=== PATIENT | female | born 1965 | race African-American/Black ===

== ENCOUNTER 2018-12-30 12:08 | Inpatient (IN) | payer SELFPAY ==
[~2018-12-30] VITALS: Ht 165.1 cm; Wt 77.1 kg
[2018-12-30] MEDS ORDERED: hydrALAZINE 20 MG/ML VIAL. IVP ONE ×2 (12:15→13:30)
--- NOTE | 2018-12-30 12:19 | PHYS DOC ---
Past Medical History Attending Signature I have participated in the care of this patient and I have reviewed and agree with all pertinent clinical information above including history, exam, and recommendations. (OLAYINKA PINO MD) Adult General HPI HPI Patient is a 53 year old female that presents to the ER for high blood pressure. Her blood pressure reading at an ancillary outpatient clinic was was reading high so she came by ambulance to the ER. Her blood pressure in the ambulance was 255/143. Denies any pain or symptoms of this time. Rates the last time she had blood pressure medicine was in 2018 when she was on Lisinopril. She stopped taking the medicine due to financial reasons. (HEAVEN SCOTT APRN) Review of Systems Review of Systems Constitutional: Denies fever or chills [] Eyes: Denies change in visual acuity, redness, or eye pain [] HENT: Denies nasal congestion or sore throat [] Respiratory: Denies cough or shortness of breath [] Cardiovascular: No additional information not addressed in HPI [] GI: Denies abdominal pain, nausea, vomiting, bloody stools or diarrhea [] : Denies dysuria or hematuria [] Musculoskeletal: Denies back pain or joint pain [] Integument: Denies rash or skin lesions [] Neurologic: Denies headache, focal weakness or sensory changes [] Endocrine: Denies polyuria or polydipsia [] Complete systems were reviewed and found to be within normal limits, except as documented in this note. (HEAVEN SCOTT APRN) Current Medications Current Medications Current Medications Medications (Trade) Dose Ordered Sig/Amor Start Time Stop Time Status Last Admin Dose Admin Hydralazine HCl (Apresoline Inj) 10 mg 1X ONCE 12/30/18 13:30 12/30/18 13:31 DC 12/30/18 14:23 10 MG Info (CONTRAST GIVEN -- Rx MONITORING) 1 each PRN DAILY PRN 12/30/18 14:00 01/01/19 13:59 Iohexol (Omnipaque 350 Mg/ml) 60 ml 1X ONCE 12/30/18 14:00 12/30/18 14:01 DC 12/30/18 14:12 60 ML (OLAIYNKA PINO MD) Allergies Allergies Allergies Coded Allergies Type Severity Reaction Last Updated Verified No Known Drug Allergies 12/30/18 No (OLAYINKA PINO MD) Physical Exam Physical Exam Constitutional: Well developed, well nourished, no acute distress, non-toxic appearance. [] HENT: Normocephalic, atraumatic, bilateral external ears normal, oropharynx moist, no oral exudates, nose normal. [] Eyes: PERRLA, EOMI, conjunctiva normal, no discharge. [] Neck: Normal range of motion, no tenderness, supple, no stridor. [] Cardiovascular:Heart rate regular rhythm, no murmur [] Lungs & Thorax: Bilateral breath sounds clear to auscultation [] Abdomen: Bowel sounds normal, soft, no tenderness, no masses, no pulsatile masses. [] Skin: Warm, dry, no erythema, no rash. [] Back: No tenderness, no CVA tenderness. [] Extremities: No tenderness, no cyanosis, no clubbing, ROM intact, no edema. [] Neurologic: Alert and oriented X 3, normal motor function, normal sensory function, no focal deficits noted. [] Psychologic: Affect normal, judgement normal, mood normal. [] (HEAVEN SCOTT APRN) Current Patient Data Vital Signs Vital Signs Date Time Temp Pulse Resp B/P (MAP) Pulse Ox O2 Delivery O2 Flow Rate FiO2 12/30/18 14:23 73 207/114 12/30/18 12:10 98.4 20 95 Room Air 98.4 (OLAYINKA PINO MD) Lab Values Laboratory Tests Test 12/30/18 12:39 White Blood Count 3.4 x10^3/uL (4.0-11.0) L Red Blood Count 3.90 x10^6/uL (3.50-5.40) Hemoglobin 12.7 g/dL (12.0-15.5) Hematocrit 36.8 % (36.0-47.0) Mean Corpuscular Volume 94 fL (79-100) Mean Corpuscular Hemoglobin 32 pg (25-35) Mean Corpuscular Hemoglobin Concent 34 g/dL (31-37) Red Cell Distribution Width 12.0 % (11.5-14.5) Platelet Count 205 x10^3/uL (140-400) Neutrophils (%) (Auto) 45 % (31-73) Lymphocytes (%) (Auto) 44 % (24-48) Monocytes (%) (Auto) 10 % (0-9) H Eosinophils (%) (Auto) 1 % (0-3) Basophils (%) (Auto) 0 % (0-3) Neutrophils # (Auto) 1.5 x10^3/uL (1.8-7.7) L Lymphocytes # (Auto) 1.5 x10^3/uL (1.0-4.8) Monocytes # (Auto) 0.3 x10^3/uL (0.0-1.1) Eosinophils # (Auto) 0.0 x10^3/uL (0.0-0.7) Basophils # (Auto) 0.0 x10^3/uL (0.0-0.2) Sodium Level 145 mmol/L (136-145) Potassium Level 4.1 mmol/L (3.5-5.1) Chloride Level 106 mmol/L (98-107) Carbon Dioxide Level 28 mmol/L (21-32) Anion Gap 11 (6-14) Blood Urea Nitrogen 15 mg/dL (7-20) Creatinine 1.1 mg/dL (0.6-1.0) H Estimated GFR (Cockcroft-Gault) 51.6 BUN/Creatinine Ratio 14 (6-20) Glucose Level 89 mg/dL (70-99) Calcium Level 9.5 mg/dL (8.5-10.1) Total Bilirubin 0.6 mg/dL (0.2-1.0) Aspartate Amino Transferase (AST) 15 U/L (15-37) Alanine Aminotransferase (ALT) 11 U/L (14-59) L Alkaline Phosphatase 86 U/L (46-116) Total Protein 8.6 g/dL (6.4-8.2) H Albumin 4.1 g/dL (3.4-5.0) Albumin/Globulin Ratio 0.9 (1.0-1.7) L Laboratory Tests 12/30/18 12:39 Laboratory Tests 12/30/18 12:39 (OLAYINKA PINO MD) Lab Values Laboratory Tests Test 12/30/18 12:39 White Blood Count 3.4 x10^3/uL (4.0-11.0) L Red Blood Count 3.90 x10^6/uL (3.50-5.40) Hemoglobin 12.7 g/dL (12.0-15.5) Hematocrit 36.8 % (36.0-47.0) Mean Corpuscular Volume 94 fL (79-100) Mean Corpuscular Hemoglobin 32 pg (25-35) Mean Corpuscular Hemoglobin Concent 34 g/dL (31-37) Red Cell Distribution Width 12.0 % (11.5-14.5) Platelet Count 205 x10^3/uL (140-400) Neutrophils (%) (Auto) 45 % (31-73) Lymphocytes (%) (Auto) 44 % (24-48) Monocytes (%) (Auto) 10 % (0-9) H Eosinophils (%) (Auto) 1 % (0-3) Basophils (%) (Auto) 0 % (0-3) Neutrophils # (Auto) 1.5 x10^3/uL (1.8-7.7) L Lymphocytes # (Auto) 1.5 x10^3/uL (1.0-4.8) Monocytes # (Auto) 0.3 x10^3/uL (0.0-1.1) Eosinophils # (Auto) 0.0 x10^3/uL (0.0-0.7) Basophils # (Auto) 0.0 x10^3/uL (0.0-0.2) Sodium Level 145 mmol/L (136-145) Potassium Level 4.1 mmol/L (3.5-5.1) Chloride Level 106 mmol/L (98-107) Carbon Dioxide Level 28 mmol/L (21-32) Anion Gap 11 (6-14) Blood Urea Nitrogen 15 mg/dL (7-20) Creatinine 1.1 mg/dL (0.6-1.0) H Estimated GFR (Cockcroft-Gault) 51.6 BUN/Creatinine Ratio 14 (6-20) Glucose Level 89 mg/dL (70-99) Calcium Level 9.5 mg/dL (8.5-10.1) Total Bilirubin 0.6 mg/dL (0.2-1.0) Aspartate Amino Transferase (AST) 15 U/L (15-37) Alanine Aminotransferase (ALT) 11 U/L (14-59) L Alkaline Phosphatase 86 U/L (46-116) Total Protein 8.6 g/dL (6.4-8.2) H Albumin 4.1 g/dL (3.4-5.0) Albumin/Globulin Ratio 0.9 (1.0-1.7) L Laboratory Tests 12/30/18 12:39 Laboratory Tests 12/30/18 12:39 (HEAVEN SCOTT APRN) EKG EKG EKG interpreted by Dr. Pino Sinus with rate of 55, No STEMI.[] (HEAVEN SCOTT APRN) Radiology/Procedures Radiology/Procedures [][facility] [address] [place] [address] IMAGING REPORT Signed PATIENT: SUSHIL ACOSTA ACCOUNT: [id number] : 1965 LOCATION: ER AGE: 53 SEX: F EXAM STATUS: REG ER ORD. PHYSICIAN: HEAVEN SCOTT APRN REASON: headache PROCEDURE: CT HEAD WO CONTRAST PQRS Compliance Statement: One or more of the following individualized dose reduction techniques were utilized for this examination: 1. Automated exposure control 2. Adjustment of the mA and/or kV according to patient size 3. Use of iterative reconstruction technique CT HEAD WO CONTRAST, CT ANGIOGRAPHY HEAD AND NECK 12/30/2018 2:01 PM INDICATION: Blurry vision, hypertension with history of aneurysm COMPARISON: None available TECHNIQUE: Multiple axial CT images of the head were obtained from skull base to the vertex without intravenous contrast. Multiple axial CT images of the head and neck were obtained after the intravenous administration of nonionic contrast. Coronal and sagittal reformats are provided. Maximum intensity projection images are provided. Stenosis calculations for CT, MR, and conventional angiography are based upon measurements of the distal ICA diameter in accordance with the NASCET methodology. Stenosis calculations for carotid ultrasound studies are derived from validated velocity criteria which are known to correlate with the NASCET methodology. FINDINGS: Ventricles, sulci and basal cisterns are normal in appearance. Focal hypoattenuation is identified in the right external capsule which may represent remote lacunar infarct measuring 7 mm. Boone-white matter differentiation is preserved. There is no mass, mass effect or midline shift. Posterior fossa is normal in appearance. Sella and suprasellar cistern appear normal. Orbits are normal in appearance. Scalp and calvaria appear intact. Paranasal sinuses are well aerated. Mastoid air cells are well aerated. Visualized portions of lungs are clear. Thyroid gland is normal in appearance. Neck soft tissues are normal in appearance. No pathologically enlarged cervical lymphadenopathy. Pharynx and larynx appear intact. Left retropectoral lymph node measures 9.5 mm. Amorphous soft tissue is noted within the anterior superior mediastinum and may represent residual thymic tissue. Mild cervical spondylosis is noted at C5-C6 and C6-C7. Vascular findings: There is a normal three-vessel aortic arch. Origins of the brachiocephalic vessels are widely patent. Right common carotid artery is normal in course and caliber. No significant atherosclerotic changes are identified at the right carotid bifurcation. No significant stenosis of the right cervical internal carotid artery. External carotid artery is widely patent. Left common carotid artery is normal in course and caliber. No significant atherosclerotic changes are identified at the left carotid bifurcation. No significant stenosis of the left cervical internal carotid artery. External carotid artery is widely patent. Vertebral arteries are normal in course and caliber. Intracranial segments of internal carotid arteries are normal in course and caliber. There is mild calcified atheromatous plaque involving the cavernous segments without significant stenosis. Origins of the ophthalmic segments of the internal carotid artery appears widely patent. Middle cerebral arteries are normal in course and caliber with patent sylvian branches. Anterior cerebral arteries are normal in course and caliber. Anterior communicating artery is visualized. Basilar artery is normal in course and caliber. Superior cerebellar arteries are widely patent. Posterior cerebral arteries are normal in course and caliber. There is no aneurysm, vascular malformation or high-grade stenosis/large vessel occlusion involving [place]. Superior sagittal sinus is patent. IMPRESSION: 1. There is no evidence for acute intracranial hemorrhage. Focal hypoattenuation is identified in the right external capsule which may represent remote lacunar infarct measuring 7 mm. If there is persistent clinical concern, further evaluation with MRI is recommended. 2. There is no evidence for hemodynamically significant carotid stenosis. 3. There is no aneurysm, vascular malformation or high-grade stenosis/large vessel occlusion involving the [place]. Recommend correlation with any prior examinations if available with regards to "history of aneurysm". Electronically signed by: Darlene Kiran MD (12/30/2018 2:40 PM) [id number] DICTATED and SIGNED BY: DARLENE KIRAN MD DATE: 12/30/18 6891 (HEAVEN SCOTT APRN) Course & Med Decision Making Course & Med Decision Making Pertinent Labs and Imaging studies reviewed. (See chart for details) Will get labs, ekg, and give hydralazine. 1328: Patient is now complaining of left eye blurry vision, and headache. BP is now 205/107. Will give 10 mg of hydralazine and order CTA Head/neck. CT head shows 7 mm lacunar infarct likely not acute. Will contact hospitalist for admission. BP is 178/117. Discussed with Dr. Lui who agrees to admission. Dr. Lui request consult to neurology and 40 mg of IV Lasix for BP (HEAVEN SCOTT APRN) Dragon Disclaimer Dragon Disclaimer This electronic medical record was generated, in whole or in part, using a voice recognition dictation system. (HEAVEN SCOTT APRN) Departure Departure Impression: Primary Impression: Hypertensive urgency Disposition: ADMITTED INPATIENT Admitting Physician: PIOTR (HEAVEN SCOTT APRN) Condition: STABLE NIHSS Stroke Scale NIH Stroke Scale: NIH Stroke Scale Response (Comments) Value Level of Consciousness: 0 Alert/Responsive 0 LOC Questions: 0 Answers both correctly 0 LOC Commands: 0 Performs both tasks 0 Best Gaze: 0 Normal 0 Visual: 0 No visual loss 0 Facial Palsy: 0 Normal, symmetrical 0 Motor - Left Arm 0 No drift 0 Motor - Right Arm 0 No drift 0 Motor - Left Leg 0 No drift 0 Motor: Right Leg 0 No drift 0 Limb Ataxia: 0 Absent 0 Sensory: 0 No loss 0 Best Language: 0 Normal 0 Dysathria: 0 Normal 0 Extinction and Inattention: 0 Normal 0 Total 0 HEAVEN SCOTT APRN Dec 30, 2018 12:19 OLAYINKA PINO MD Dec 31, 2018 09:33
[2018-12-30 12:51] LABS: BASO % 0 % (0-3); EOS % 1 % (0-3); HEMATOCRIT 36.8 % (36.0-47.0); HEMOGLOBIN 12.7 g/dL (12.0-15.5); LYMPH # 1.5 x10^3/uL (1.0-4.8); LYMPH % 44 % (24-48); MEAN CORPUSCULAR HEMOGLOBIN 32 pg (25-35); MEAN CORPUSCULAR HGB CONC 34 g/dL (31-37); MEAN CORPUSCULAR VOLUME 94 fL (79-100); MONO # 0.3 x10^3/uL (0.0-1.1); MONO % 10 % (0-9); NEUT # 1.5 x10^3/uL (1.8-7.7); NEUT % 45 % (31-73); PLATELET COUNT 205 x10^3/uL (140-400); WHITE BLOOD COUNT 3.4 x10^3/uL (4.0-11.0)
[2018-12-30 12:58] LABS: CALCIUM 9.5 mg/dL (8.5-10.1); CREATININE 1.1 mg/dL (0.6-1.0); GFR 51.6; POTASSIUM 4.1 mmol/L (3.5-5.1)
[2018-12-30 13:04] LABS: ALBUMIN 4.1 g/dL (3.4-5.0); ALBUMIN/GLOBULIN RATIO 0.9 (1.0-1.7); TOTAL BILIRUBIN 0.6 mg/dL (0.2-1.0); TOTAL PROTEIN 8.6 g/dL (6.4-8.2)
--- NOTE | 2018-12-30 13:23 | EKG ---
[facility] [address] [place] [address] Test Date: 2018-12-30 Test Time: 12:25:39 Pat Name: SUSHIL ACOSTA Department: Room: Gender: F Transferrer: : 1965 Requested By: HEAVEN SCOTT Order Number: [id number] Reading MD: Robert Tsai MD Measurements Intervals Roby Rate: 55 P: 38 WA: 140 QRS: -8 QRSD: 98 T: 4 QT: 440 QTc: 423 Interpretive Statements SINUS RHYTHM NON-SPECIFIC ST/T CHANGES Electronically Signed On 01-08-2019 12:05:38 CDT by Robert Tsai MD
[2018-12-30] MEDS ORDERED: CONTRAST GIVEN. MC PRN (14:00)
[2018-12-30] MEDS ORDERED: IOHEXOL 350 MG/ML 100 ML VIAL. IV ONE (14:00)
--- NOTE | 2018-12-30 14:43 | RAD ---
PQRS Compliance Statement: One or more of the following individualized dose reduction techniques were utilized for this examination: 1. Automated exposure control 2. Adjustment of the mA and/or kV according to patient size 3. Use of iterative reconstruction technique CT HEAD WO CONTRAST, CT ANGIOGRAPHY HEAD AND NECK 12/30/2018 2:01 PM INDICATION: Blurry vision, hypertension with history of aneurysm COMPARISON: None available TECHNIQUE: Multiple axial CT images of the head were obtained from skull base to the vertex without intravenous contrast. Multiple axial CT images of the head and neck were obtained after the intravenous administration of nonionic contrast. Coronal and sagittal reformats are provided. Maximum intensity projection images are provided. Stenosis calculations for CT, MR, and conventional angiography are based upon measurements of the distal ICA diameter in accordance with the NASCET methodology. Stenosis calculations for carotid ultrasound studies are derived from validated velocity criteria which are known to correlate with the NASCET methodology. FINDINGS: Ventricles, sulci and basal cisterns are normal in appearance. Focal hypoattenuation is identified in the right external capsule which may represent remote lacunar infarct measuring 7 mm. Boone-white matter differentiation is preserved. There is no mass, mass effect or midline shift. Posterior fossa is normal in appearance. Sella and suprasellar cistern appear normal. Orbits are normal in appearance. Scalp and calvaria appear intact. Paranasal sinuses are well aerated. Mastoid air cells are well aerated. Visualized portions of lungs are clear. Thyroid gland is normal in appearance. Neck soft tissues are normal in appearance. No pathologically enlarged cervical lymphadenopathy. Pharynx and larynx appear intact. Left retropectoral lymph node measures 9.5 mm. Amorphous soft tissue is noted within the anterior superior mediastinum and may represent residual thymic tissue. Mild cervical spondylosis is noted at C5-C6 and C6-C7. Vascular findings: There is a normal three-vessel aortic arch. Origins of the brachiocephalic vessels are widely patent. Right common carotid artery is normal in course and caliber. No significant atherosclerotic changes are identified at the right carotid bifurcation. No significant stenosis of the right cervical internal carotid artery. External carotid artery is widely patent. Left common carotid artery is normal in course and caliber. No significant atherosclerotic changes are identified at the left carotid bifurcation. No significant stenosis of the left cervical internal carotid artery. External carotid artery is widely patent. Vertebral arteries are normal in course and caliber. Intracranial segments of internal carotid arteries are normal in course and caliber. There is mild calcified atheromatous plaque involving the cavernous segments without significant stenosis. Origins of the ophthalmic segments of the internal carotid artery appears widely patent. Middle cerebral arteries are normal in course and caliber with patent sylvian branches. Anterior cerebral arteries are normal in course and caliber. Anterior communicating artery is visualized. Basilar artery is normal in course and caliber. Superior cerebellar arteries are widely patent. Posterior cerebral arteries are normal in course and caliber. There is no aneurysm, vascular malformation or high-grade stenosis/large vessel occlusion involving [place]. Superior sagittal sinus is patent. IMPRESSION: 1. There is no evidence for acute intracranial hemorrhage. Focal hypoattenuation is identified in the right external capsule which may represent remote lacunar infarct measuring 7 mm. If there is persistent clinical concern, further evaluation with MRI is recommended. 2. There is no evidence for hemodynamically significant carotid stenosis. 3. There is no aneurysm, vascular malformation or high-grade stenosis/large vessel occlusion involving the [place]. Recommend correlation with any prior examinations if available with regards to "history of aneurysm". Electronically signed by: Jhoana Garcia MD (12/30/2018 2:40 PM) [id number]
[2018-12-30] MEDS ORDERED: ONDANSETRON PF 4 MG/2 ML VIAL. IV PRN (16:00)
[2018-12-30] MEDS ORDERED: fentaNYL PF VIAL 100 MCG/2 ML VIAL IV PRN (16:00)
[2018-12-30] MEDS ORDERED: FUROSEMIDE 40 MG/4 ML VIAL. IVP ONE (16:00)
[2018-12-30] MEDS ORDERED: LISI-130 PO (17:18)
--- NOTE | 2018-12-30 18:54 | HP ---
ADMIT DATE: 12/30/2018 CHIEF COMPLAINT: High blood pressure. HISTORY OF PRESENT ILLNESS: The patient is a pleasant middle-aged female who I think could not afford her meds. She is supposed to be on lisinopril and has not been taking it now. Her pressure is 255/143. I discussed the case with ER physician. We also had a CAT scan done, which is showing a 7-mm stroke, then she developed some visual changes in the ER. We are starting some Lasix and we will plan to consult Neurology. PAST MEDICAL HISTORY: Noncompliance and hypertension. ALLERGIES: None. FAMILY HISTORY: Hypertension. SOCIAL HISTORY: She does not drink, smoke or take drugs. She is applying for disability. MEDICATIONS: Reviewed. Please refer to the MRAD. REVIEW OF SYSTEMS: GENERAL: No history of weight change, weakness or fevers. SKIN: No bruising, hair changes or rashes. EYES: No blurred, double or loss of vision. NOSE AND THROAT: No history of nosebleeds, hoarseness or sore throat. HEART: No history of palpitations, chest pain or shortness of breath on exertion. LUNGS: Denies cough, hemoptysis, wheezing or shortness of breath. GASTROINTESTINAL: Denies changes in appetite, nausea, vomiting, diarrhea or constipation. GENITOURINARY: No history of frequency, urgency, hesitancy or nocturia. NEUROLOGIC: Denies history of numbness, tingling, tremor or weakness. She complains of visual changes, although it is improved. PSYCHIATRIC: No history of panic, anxiety or depression. ENDOCRINE: No history of heat or cold intolerance, polyuria or polydipsia. EXTREMITIES: Denies muscle weakness, joint pain, pain on walking or stiffness. PHYSICAL EXAMINATION: VITAL SIGNS: Pressure was 255/148. We got it down to 170/90. GENERAL: No apparent distress. Alert and oriented. HEENT: Head is normocephalic, atraumatic, pupils were equally round and reactive to light and accommodation. NECK: Supple, no JVD, no thyromegaly was noted. LUNGS: Clear to auscultation in all lung alonso without rhonchi or wheezing. HEART: RRR, S1, S2 present. Peripheral pulses intact, no obvious murmurs were noted. ABDOMEN: Soft, nontender. Positive bowel sounds no organomegaly, normal bowel sounds. EXTREMITIES: Without any cyanosis, clubbing, or edema. Pedal pulses intact, Homans sign is negative. NEUROLOGIC: Normal speech, normal tone. A & O x3, moves all extremities, no obvious focal deficits. PSYCHIATRIC: Normal affect, normal mood. Stable. SKIN: No ulcerations or rashes, good skin turgor, no jaundice. VASCULAR: Good capillary refill, neurovascular bundle appears to be intact. LABORATORY DATA: White count is 3.4. Electrolytes are normal. ASSESSMENT AND PLAN: Hypertensive urgency with incidental finding of a stroke and visual changes. The patient is being admitted. We will get her pressure down with p.r.n. hydralazine. I started her on lisinopril 10 a day, Lasix 40 a day, and potassium chloride 20 a day. Consult Neurology, PT/OT, home meds, and DVT prophylaxis. ANTONIO MACDONALD DO DR: DEJUAN/markos JOB#: [id number] / [id number]
[2018-12-30] MEDS: HYDROcodone/APAP 5/325MG 1 TAB TABLET PO PRN (18:56)
[2018-12-30 19:10] VITALS: BP 130/71
[2018-12-30 23:20] VITALS: BP 157/88
[2018-12-31 02:51] VITALS: BP 184/117
[2018-12-31] MEDS: HYDROcodone/APAP 5/325MG 1 TAB TABLET PO PRN ×2 (02:52→21:20)
[2018-12-31 07:00] VITALS: BP 159/119
[2018-12-31] MEDS: amLODIPine BESYLATE 10 MG TABLET PO SCH (08:49)
[2018-12-31] MEDS: POTASSIUM CHLORIDE 20 MEQ TABLET.ER. PO SCH (08:49)
[2018-12-31] MEDS: FUROSEMIDE 40 MG TABLET. PO SCH (08:49)
[2018-12-31] MEDS ORDERED: LISINOPRIL 10 MG TABLET PO SCH (09:00)
--- NOTE | 2018-12-31 09:12 | PDOC ---
PROGRESS NOTES History of Present Illness History of Present Illness ASSESSMENT AND PLAN: Hypertensive urgency acute, remains uncontrolled stroke ,Focal hypoattenuation is identified in the right external capsule which may represent remote lacunar infarct measuring 7 mm. If there is persistent clinical concern, further evaluation with MRI is recommended. visual changes. hx noncompliance admitted. iv p.r.n. hydralazine. 10mg q 4 hrs prn bp support lisinopril 10 bid inc Lasix 40 a day, potassium chloride 20meq a day. Consult Neurology, PT/OT, home meds, DVT prophylaxis. 39 min pt exam, chart review, > 50% of time spent with exam, chart review, pt care coordination Vitals Vitals Vital Signs Date Time Temp Pulse Resp B/P (MAP) Pulse Ox O2 Delivery O2 Flow Rate FiO2 12/31/18 08:49 62 159/119 12/31/18 07:00 98.4 18 94 Room Air 98.4 Physical Exam Physical Exam GENERAL: No apparent distress. Alert and oriented. HEENT: Head is normocephalic, atraumatic, pupils were equally round and reactive to light and accommodation. NECK: Supple, no JVD, no thyromegaly was noted. LUNGS: Clear to auscultation in all lung alonso without rhonchi or wheezing. HEART: RRR, S1, S2 present. Peripheral pulses intact, no obvious murmurs were noted. ABDOMEN: Soft, nontender. Positive bowel sounds no organomegaly, normal bowel sounds. EXTREMITIES: Without any cyanosis, clubbing, or edema. Pedal pulses intact, Homans sign is negative. NEUROLOGIC: Normal speech, normal tone. A & O x3, moves all extremities, no obvious focal deficits. PSYCHIATRIC: Normal affect, normal mood. Stable. SKIN: No ulcerations or rashes, good skin turgor, no jaundice. VASCULAR: Good capillary refill, neurovascular bundle appears to be intact. General: Alert, Oriented X3, Cooperative, No acute distress Heart: Regular rate Lungs: Clear Extremities: No cyanosis Labs LABS CT HEAD WO CONTRAST, CT ANGIOGRAPHY HEAD AND NECK 12/30/2018 2:01 PM INDICATION: Blurry vision, hypertension with history of aneurysm COMPARISON: None available TECHNIQUE: Multiple axial CT images of the head were obtained from skull base to the vertex without intravenous contrast. Multiple axial CT images of the head and neck were obtained after the intravenous administration of nonionic contrast. Coronal and sagittal reformats are provided. Maximum intensity projection images are provided. Stenosis calculations for CT, MR, and conventional angiography are based upon measurements of the distal ICA diameter in accordance with the NASCET methodology. Stenosis calculations for carotid ultrasound studies are derived from validated velocity criteria which are known to correlate with the NASCET methodology. FINDINGS: Ventricles, sulci and basal cisterns are normal in appearance. Focal hypoattenuation is identified in the right external capsule which may represent remote lacunar infarct measuring 7 mm. [place]-white matter differentiation is preserved. There is no mass, mass effect or midline shift. Posterior fossa is normal in appearance. Sella and suprasellar cistern appear normal. Orbits are normal in appearance. Scalp and calvaria appear intact. Paranasal sinuses are well aerated. Mastoid air cells are well aerated. Visualized portions of lungs are clear. Thyroid gland is normal in appearance. Neck soft tissues are normal in appearance. No pathologically enlarged cervical lymphadenopathy. Pharynx and larynx appear intact. Left retropectoral lymph node measures 9.5 mm. Amorphous soft tissue is noted within the anterior superior mediastinum and may represent residual thymic tissue. Mild cervical spondylosis is noted at C5-C6 and C6-C7. Vascular findings: There is a normal three-vessel aortic arch. Origins of the brachiocephalic vessels are widely patent. Right common carotid artery is normal in course and caliber. No significant atherosclerotic changes are identified at the right carotid bifurcation. No significant stenosis of the right cervical internal carotid artery. External carotid artery is widely patent. Left common carotid artery is normal in course and caliber. No significant atherosclerotic changes are identified at the left carotid bifurcation. No significant stenosis of the left cervical internal carotid artery. External carotid artery is widely patent. Vertebral arteries are normal in course and caliber. Intracranial segments of internal carotid arteries are normal in course and caliber. There is mild calcified atheromatous plaque involving the cavernous segments without significant stenosis. Origins of the ophthalmic segments of the internal carotid artery appears widely patent. Middle cerebral arteries are normal in course and caliber with patent sylvian branches. Anterior cerebral arteries are normal in course and caliber. Anterior communicating artery is visualized. Basilar artery is normal in course and caliber. Superior cerebellar arteries are widely patent. Posterior cerebral arteries are normal in course and caliber. There is no aneurysm, vascular malformation or high-grade stenosis/large vessel occlusion involving [place]. Superior sagittal sinus is patent. IMPRESSION: 1. There is no evidence for acute intracranial hemorrhage. Focal hypoattenuation is identified in the right external capsule which may represent remote lacunar infarct measuring 7 mm. If there is persistent clinical concern, further evaluation with MRI is recommended. 2. There is no evidence for hemodynamically significant carotid stenosis. 3. There is no aneurysm, vascular malformation or high-grade stenosis/large vessel occlusion involving the [place]. Recommend correlation with any prior examinations if available with regards to "history of aneurysm". Electronically signed by: Jhoana Garcia MD (12/30/2018 2:40 PM) [id number] Laboratory Tests Test 12/30/18 12:39 White Blood Count 3.4 x10^3/uL (4.0-11.0) Red Blood Count 3.90 x10^6/uL (3.50-5.40) Hemoglobin 12.7 g/dL (12.0-15.5) Hematocrit 36.8 % (36.0-47.0) Mean Corpuscular Volume 94 fL (79-100) Mean Corpuscular Hemoglobin 32 pg (25-35) Mean Corpuscular Hemoglobin Concent 34 g/dL (31-37) Red Cell Distribution Width 12.0 % (11.5-14.5) Platelet Count 205 x10^3/uL (140-400) Neutrophils (%) (Auto) 45 % (31-73) Lymphocytes (%) (Auto) 44 % (24-48) Monocytes (%) (Auto) 10 % (0-9) Eosinophils (%) (Auto) 1 % (0-3) Basophils (%) (Auto) 0 % (0-3) Neutrophils # (Auto) 1.5 x10^3/uL (1.8-7.7) Lymphocytes # (Auto) 1.5 x10^3/uL (1.0-4.8) Monocytes # (Auto) 0.3 x10^3/uL (0.0-1.1) Eosinophils # (Auto) 0.0 x10^3/uL (0.0-0.7) Basophils # (Auto) 0.0 x10^3/uL (0.0-0.2) Sodium Level 145 mmol/L (136-145) Potassium Level 4.1 mmol/L (3.5-5.1) Chloride Level 106 mmol/L (98-107) Carbon Dioxide Level 28 mmol/L (21-32) Anion Gap 11 (6-14) Blood Urea Nitrogen 15 mg/dL (7-20) Creatinine 1.1 mg/dL (0.6-1.0) Estimated GFR (Cockcroft-Gault) 51.6 BUN/Creatinine Ratio 14 (6-20) Glucose Level 89 mg/dL (70-99) Calcium Level 9.5 mg/dL (8.5-10.1) Total Bilirubin 0.6 mg/dL (0.2-1.0) Aspartate Amino Transf (AST/SGOT) 15 U/L (15-37) Alanine Aminotransferase (ALT/SGPT) 11 U/L (14-59) Alkaline Phosphatase 86 U/L (46-116) Total Protein 8.6 g/dL (6.4-8.2) Albumin 4.1 g/dL (3.4-5.0) Albumin/Globulin Ratio 0.9 (1.0-1.7) Assessment and Plan Assessmemt and Plan Problems Medical Problems: (1) Hypertensive urgency Status: Acute Comment Review of Relevant I have reviewed the following items noris (where applicable) has been applied. Labs Laboratory Tests Test 12/30/18 12:39 White Blood Count 3.4 x10^3/uL (4.0-11.0) Red Blood Count 3.90 x10^6/uL (3.50-5.40) Hemoglobin 12.7 g/dL (12.0-15.5) Hematocrit 36.8 % (36.0-47.0) Mean Corpuscular Volume 94 fL (79-100) Mean Corpuscular Hemoglobin 32 pg (25-35) Mean Corpuscular Hemoglobin Concent 34 g/dL (31-37) Red Cell Distribution Width 12.0 % (11.5-14.5) Platelet Count 205 x10^3/uL (140-400) Neutrophils (%) (Auto) 45 % (31-73) Lymphocytes (%) (Auto) 44 % (24-48) Monocytes (%) (Auto) 10 % (0-9) Eosinophils (%) (Auto) 1 % (0-3) Basophils (%) (Auto) 0 % (0-3) Neutrophils # (Auto) 1.5 x10^3/uL (1.8-7.7) Lymphocytes # (Auto) 1.5 x10^3/uL (1.0-4.8) Monocytes # (Auto) 0.3 x10^3/uL (0.0-1.1) Eosinophils # (Auto) 0.0 x10^3/uL (0.0-0.7) Basophils # (Auto) 0.0 x10^3/uL (0.0-0.2) Sodium Level 145 mmol/L (136-145) Potassium Level 4.1 mmol/L (3.5-5.1) Chloride Level 106 mmol/L (98-107) Carbon Dioxide Level 28 mmol/L (21-32) Anion Gap 11 (6-14) Blood Urea Nitrogen 15 mg/dL (7-20) Creatinine 1.1 mg/dL (0.6-1.0) Estimated GFR (Cockcroft-Gault) 51.6 BUN/Creatinine Ratio 14 (6-20) Glucose Level 89 mg/dL (70-99) Calcium Level 9.5 mg/dL (8.5-10.1) Total Bilirubin 0.6 mg/dL (0.2-1.0) Aspartate Amino Transf (AST/SGOT) 15 U/L (15-37) Alanine Aminotransferase (ALT/SGPT) 11 U/L (14-59) Alkaline Phosphatase 86 U/L (46-116) Total Protein 8.6 g/dL (6.4-8.2) Albumin 4.1 g/dL (3.4-5.0) Albumin/Globulin Ratio 0.9 (1.0-1.7) Laboratory Tests Test 12/30/18 12:39 White Blood Count 3.4 x10^3/uL (4.0-11.0) Red Blood Count 3.90 x10^6/uL (3.50-5.40) Hemoglobin 12.7 g/dL (12.0-15.5) Hematocrit 36.8 % (36.0-47.0) Mean Corpuscular Volume 94 fL (79-100) Mean Corpuscular Hemoglobin 32 pg (25-35) Mean Corpuscular Hemoglobin Concent 34 g/dL (31-37) Red Cell Distribution Width 12.0 % (11.5-14.5) Platelet Count 205 x10^3/uL (140-400) Neutrophils (%) (Auto) 45 % (31-73) Lymphocytes (%) (Auto) 44 % (24-48) Monocytes (%) (Auto) 10 % (0-9) Eosinophils (%) (Auto) 1 % (0-3) Basophils (%) (Auto) 0 % (0-3) Neutrophils # (Auto) 1.5 x10^3/uL (1.8-7.7) Lymphocytes # (Auto) 1.5 x10^3/uL (1.0-4.8) Monocytes # (Auto) 0.3 x10^3/uL (0.0-1.1) Eosinophils # (Auto) 0.0 x10^3/uL (0.0-0.7) Basophils # (Auto) 0.0 x10^3/uL (0.0-0.2) Sodium Level 145 mmol/L (136-145) Potassium Level 4.1 mmol/L (3.5-5.1) Chloride Level 106 mmol/L (98-107) Carbon Dioxide Level 28 mmol/L (21-32) Anion Gap 11 (6-14) Blood Urea Nitrogen 15 mg/dL (7-20) Creatinine 1.1 mg/dL (0.6-1.0) Estimated GFR (Cockcroft-Gault) 51.6 BUN/Creatinine Ratio 14 (6-20) Glucose Level 89 mg/dL (70-99) Calcium Level 9.5 mg/dL (8.5-10.1) Total Bilirubin 0.6 mg/dL (0.2-1.0) Aspartate Amino Transf (AST/SGOT) 15 U/L (15-37) Alanine Aminotransferase (ALT/SGPT) 11 U/L (14-59) Alkaline Phosphatase 86 U/L (46-116) Total Protein 8.6 g/dL (6.4-8.2) Albumin 4.1 g/dL (3.4-5.0) Albumin/Globulin Ratio 0.9 (1.0-1.7) Medications Current Medications Hydralazine HCl (Apresoline Inj) 10 mg 1X ONCE IVP Last administered on 12/30/18at 12:49; Start 12/30/18 at 12:15; Stop 12/30/18 at 12:23; Status DC Hydralazine HCl (Apresoline Inj) 10 mg 1X ONCE IVP Last administered on 12/30/18at 14:23; Start 12/30/18 at 13:30; Stop 12/30/18 at 13:31; Status DC Iohexol (Omnipaque 350 Mg/ml) 60 ml 1X ONCE IV Last administered on 12/30/18at 14:12; Start 12/30/18 at 14:00; Stop 12/30/18 at 14:01; Status DC Info (CONTRAST GIVEN -- Rx MONITORING) 1 each PRN DAILY PRN MC SEE COMMENTS; Start 12/30/18 at 14:00; Stop 01/01/19 at 13:59 Ondansetron HCl (Zofran) 4 mg PRN Q8HRS PRN IV NAUSEA/VOMITING Last administered on 12/30/18at 17:23; Start 12/30/18 at 16:00; Stop 12/31/18 at 15:59 Fentanyl Citrate (Fentanyl 2ml Vial) 50 mcg PRN Q1HR PRN IV PAIN; Start 12/30/18 at 16:00; Stop 12/31/18 at 15:59 Furosemide (Lasix) 40 mg 1X ONCE IVP Last administered on 12/30/18at 17:21; Start 12/30/18 at 16:00; Stop 12/30/18 at 16:01; Status DC Lisinopril (Prinivil) 10 mg DAILY PO Last administered on 12/31/18 08:49; Start 12/31/18 at 09:00 Furosemide (Lasix) 40 mg DAILY PO Last administered on 12/31/18 08:49; Start 12/31/18 at 09:00 Potassium Chloride (Klor-Con) 20 meq DAILYWBKFT PO Last administered on 12/31/18 08:49; Start 12/31/18 at 08:00 Acetaminophen/ Hydrocodone Bitart (Lortab 5/325) 1 tab PRN Q4HRS PRN PO PAIN Last administered on 12/31/18 02:52; Start 12/30/18 at 18:30 Amlodipine Besylate (Norvasc) 10 mg DAILY PO Last administered on 12/31/18 08:49; Start 12/31/18 at 09:00 Active Scripts Active Reported Lisinopril 40 Mg Tablet 1 Tab PO DAILY Vitals/I & O Vital Sign - Last 24 Hours 12/30/18 12/30/18 12/30/18 12/30/18 12:10 12:49 14:18 14:23 Temp 98.4 98.4 Pulse 64 58 72 73 Resp 20 B/P (MAP) 253/148 (183) 225/148 207/114 Pulse Ox 95 O2 Delivery Room Air 12/30/18 12/30/18 12/30/18 12/30/18 16:00 16:30 18:33 19:10 Temp 98.1 98.1 Pulse 70 70 92 Resp 28 16 B/P (MAP) 130/71 (90) Pulse Ox 99 99 98 O2 Delivery Room Air Room Air 12/30/18 12/30/18 12/31/18 12/31/18 20:00 23:20 02:51 07:00 Temp 98.9 98.2 98.4 98.9 98.2 98.4 Pulse 68 63 62 Resp 16 15 18 B/P (MAP) 157/88 (111) 184/117 (139) 159/119 (132) Pulse Ox 99 98 94 O2 Delivery Room Air Room Air Room Air Room Air 12/31/18 12/31/18 08:49 08:49 Pulse 62 62 B/P (MAP) 159/119 159/119 Intake and Output 12/30/18 12/30/18 12/31/18 15:00 23:00 07:00 Intake Total 1200 ml Balance 1200 ml MILLIE FISHER MD Dec 31, 2018 09:12
[2018-12-31 11:00] VITALS: BP 158/88
--- NOTE | 2018-12-31 13:15 | PDOC2 ---
NEUROLOGY CONSULT Date of Admission Date of Admission DATE: 12/31/18 TIME: 13:11 Reason for Consult Reason for Consult: Hypertensive encephalopathy Referring Physician Referring Physician: Dr. Lui Source Source: Chart review, Patient History of Present Illness History of Present Illness The patient is a 53-year-old right-handed female who came to the emergency room with high blood pressure, found at an outpatient clinic. She noticed some blurred vision and trouble thinking. There is no history of stroke, seizure, or head injury. She has been off her antihypertensives for a year because of financial issues. Past Medical History Cardiovascular: HTN Past Surgical History Past Surgical History: No pertinent history Family History Family History: No pertinent hx Social History Social History Single, occasional alcohol, no tobacco, works odd jobs Current Medications Current Medications Current Medications Hydralazine HCl (Apresoline Inj) 10 mg 1X ONCE IVP Last administered on 12/30/18at 12:49; Start 12/30/18 at 12:15; Stop 12/30/18 at 12:23; Status DC Hydralazine HCl (Apresoline Inj) 10 mg 1X ONCE IVP Last administered on 12/30/18at 14:23; Start 12/30/18 at 13:30; Stop 12/30/18 at 13:31; Status DC Iohexol (Omnipaque 350 Mg/ml) 60 ml 1X ONCE IV Last administered on 12/30/18at 14:12; Start 12/30/18 at 14:00; Stop 12/30/18 at 14:01; Status DC Info (CONTRAST GIVEN -- Rx MONITORING) 1 each PRN DAILY PRN MC SEE COMMENTS; Start 12/30/18 at 14:00; Stop 01/01/19 at 13:59 Ondansetron HCl (Zofran) 4 mg PRN Q8HRS PRN IV NAUSEA/VOMITING Last administered on 12/30/18at 17:23; Start 12/30/18 at 16:00; Stop 12/31/18 at 15:59 Fentanyl Citrate (Fentanyl 2ml Vial) 50 mcg PRN Q1HR PRN IV PAIN; Start 12/30/18 at 16:00; Stop 12/31/18 at 15:59 Furosemide (Lasix) 40 mg 1X ONCE IVP Last administered on 12/30/18at 17:21; Start 12/30/18 at 16:00; Stop 12/30/18 at 16:01; Status DC Lisinopril (Prinivil) 10 mg DAILY PO Last administered on 12/31/18at 08:49; Start 12/31/18 at 09:00; Stop 12/31/18 at 12:20; Status DC Furosemide (Lasix) 40 mg DAILY PO Last administered on 12/31/18at 08:49; Start 12/31/18 at 09:00 Potassium Chloride (Klor-Con) 20 meq DAILYWBKFT PO Last administered on 12/31/18at 08:49; Start 12/31/18 at 08:00 Acetaminophen/ Hydrocodone Bitart (Lortab 5/325) 1 tab PRN Q4HRS PRN PO PAIN Last administered on 12/31/18at 02:52; Start 12/30/18 at 18:30 Amlodipine Besylate (Norvasc) 10 mg DAILY PO Last administered on 12/31/18at 08:49; Start 12/31/18 at 09:00 Lisinopril (Prinivil) 10 mg [id number] PO ; Start 12/31/18 at 12:30 Hydrochlorothiazide (Microzide) 12.5 mg DAILY PO ; Start 12/31/18 at 12:30 Active Scripts Active Reported Lisinopril 40 Mg Tablet 1 Tab PO DAILY Allergies Allergies: Coded Allergies: No Known Drug Allergies (Unverified , 12/30/18) ROS Review of System Negative for fever, chills, weight loss, shortness of breath, chest pain, indigestion, hematochezia, melena, and dysuria. Full 14-point review of systems is negative. Physical Exam Physical Examination General: Well-developed, well-nourished black female in no acute distress HEENT: Normocephalic andatraumatic. Temporal arteriespulsatile and nontender.Fundos copic exam unremarkable Neck: Supple without bruit, no meningismus Musculoskeletal: Stability:see neurologic. Gait exam:see neurologic. Tone:see neurologic.Strength:see neurologic. Neurological: Mental Status:intact, orientation, memory, attention span/concentration, language, fund of knowledge normal. Cranial Nerves:Pupils equal and reactive to light, extraocular movements areintact, visual alonso are full to confrontation. Facial sensation is normal. There is no facial asymmetry. Vestibulo-ocular reflex is intact. Palate elevates and tongue protrudes in midline. All other cranial related problems are negative except as mentioned before.Reflexes:2+ and symmetric with flexor plantar responses. Motor:5/5 strength with normal tone and bulk. Coordination:Finger-nose finger and [id number] testing are normal. Rapid alternating movements and fine finger movements are intact. Gait:Normal, including tandem. Sensory:Normal pinprick, vibration, light touch, proprioception. Vitals VITALS Vital Signs Date Time Temp Pulse Resp B/P (MAP) Pulse Ox O2 Delivery O2 Flow Rate FiO2 12/31/18 11:00 98.2 64 18 158/88 (111) 98 Room Air 98.2 Labs Labs Laboratory Tests Test 12/30/18 12:39 White Blood Count 3.4 x10^3/uL (4.0-11.0) Red Blood Count 3.90 x10^6/uL (3.50-5.40) Hemoglobin 12.7 g/dL (12.0-15.5) Hematocrit 36.8 % (36.0-47.0) Mean Corpuscular Volume 94 fL (79-100) Mean Corpuscular Hemoglobin 32 pg (25-35) Mean Corpuscular Hemoglobin Concent 34 g/dL (31-37) Red Cell Distribution Width 12.0 % (11.5-14.5) Platelet Count 205 x10^3/uL (140-400) Neutrophils (%) (Auto) 45 % (31-73) Lymphocytes (%) (Auto) 44 % (24-48) Monocytes (%) (Auto) 10 % (0-9) Eosinophils (%) (Auto) 1 % (0-3) Basophils (%) (Auto) 0 % (0-3) Neutrophils # (Auto) 1.5 x10^3/uL (1.8-7.7) Lymphocytes # (Auto) 1.5 x10^3/uL (1.0-4.8) Monocytes # (Auto) 0.3 x10^3/uL (0.0-1.1) Eosinophils # (Auto) 0.0 x10^3/uL (0.0-0.7) Basophils # (Auto) 0.0 x10^3/uL (0.0-0.2) Sodium Level 145 mmol/L (136-145) Potassium Level 4.1 mmol/L (3.5-5.1) Chloride Level 106 mmol/L (98-107) Carbon Dioxide Level 28 mmol/L (21-32) Anion Gap 11 (6-14) Blood Urea Nitrogen 15 mg/dL (7-20) Creatinine 1.1 mg/dL (0.6-1.0) Estimated GFR (Cockcroft-Gault) 51.6 BUN/Creatinine Ratio 14 (6-20) Glucose Level 89 mg/dL (70-99) Calcium Level 9.5 mg/dL (8.5-10.1) Total Bilirubin 0.6 mg/dL (0.2-1.0) Aspartate Amino Transf (AST/SGOT) 15 U/L (15-37) Alanine Aminotransferase (ALT/SGPT) 11 U/L (14-59) Alkaline Phosphatase 86 U/L (46-116) Total Protein 8.6 g/dL (6.4-8.2) Albumin 4.1 g/dL (3.4-5.0) Albumin/Globulin Ratio 0.9 (1.0-1.7) Images Images CT HEAD WO CONTRAST, CT ANGIOGRAPHY HEAD AND NECK 12/30/2018 2:01 PM INDICATION: Blurry vision, hypertension with history of aneurysm COMPARISON: None available TECHNIQUE: Multiple axial CT images of the head were obtained from skull base to the vertex without intravenous contrast. Multiple axial CT images of the head and neck were obtained after the intravenous administration of nonionic contrast. Coronal and sagittal reformats are provided. Maximum intensity projection images are provided. Stenosis calculations for CT, MR, and conventional angiography are based upon measurements of the distal ICA diameter in accordance with the NASCET methodology. Stenosis calculations for carotid ultrasound studies are derived from validated velocity criteria which are known to correlate with the NASCET methodology. FINDINGS: Ventricles, sulci and basal cisterns are normal in appearance. Focal hypoattenuation is identified in the right external capsule which may represent remote lacunar infarct measuring 7 mm. [place]-white matter differentiation is preserved. There is no mass, mass effect or midline shift. Posterior fossa is normal in appearance. Sella and suprasellar cistern appear normal. Orbits are normal in appearance. Scalp and calvaria appear intact. Paranasal sinuses are well aerated. Mastoid air cells are well aerated. Visualized portions of lungs are clear. Thyroid gland is normal in appearance. Neck soft tissues are normal in appearance. No pathologically enlarged cervical lymphadenopathy. Pharynx and larynx appear intact. Left retropectoral lymph node measures 9.5 mm. Amorphous soft tissue is noted within the anterior superior mediastinum and may represent residual thymic tissue. Mild cervical spondylosis is noted at C5-C6 and C6-C7. Vascular findings: There is a normal three-vessel aortic arch. Origins of the brachiocephalic vessels are widely patent. Right common carotid artery is normal in course and caliber. No significant atherosclerotic changes are identified at the right carotid bifurcation. No significant stenosis of the right cervical internal carotid artery. External carotid artery is widely patent. Left common carotid artery is normal in course and caliber. No significant atherosclerotic changes are identified at the left carotid bifurcation. No significant stenosis of the left cervical internal carotid artery. External carotid artery is widely patent. Vertebral arteries are normal in course and caliber. Intracranial segments of internal carotid arteries are normal in course and caliber. There is mild calcified atheromatous plaque involving the cavernous segments without significant stenosis. Origins of the ophthalmic segments of the internal carotid artery appears widely patent. Middle cerebral arteries are normal in course and caliber with patent sylvian branches. Anterior cerebral arteries are normal in course and caliber. Anterior communicating artery is visualized. Basilar artery is normal in course and caliber. Superior cerebellar arteries are widely patent. Posterior cerebral arteries are normal in course and caliber. There is no aneurysm, vascular malformation or high-grade stenosis/large vessel occlusion involving [place]. Superior sagittal sinus is patent. IMPRESSION: 1. There is no evidence for acute intracranial hemorrhage. Focal hypoattenuation is identified in the right external capsule which may represent remote lacunar infarct measuring 7 mm. If there is persistent clinical concern, further evaluation with MRI is recommended. 2. There is no evidence for hemodynamically significant carotid stenosis. 3. There is no aneurysm, vascular malformation or high-grade stenosis/large vessel occlusion involving the [place]. Recommend correlation with any prior examinations if available with regards to "history of aneurysm". Assessment/Plan Assessment/Plan Impression: Hypertensive encephalopathy, resolved, no sign of new stroke, does have an old lacunar stroke. Recommendations: Okay for discharge once blood pressure controlled No additional neurological studies or treatment needed I emphasized to the patient the necessity of taking her but pressure medicine. Thank you for letting me help with the patient's care. MELANY CARLIN MD Dec 31, 2018 13:15
[2018-12-31] MEDS: LISINOPRIL 10 MG TABLET PO SCH ×2 (13:33→17:40)
[2018-12-31] MEDS: hydroCHLOROthiazide 12.5 MG CAPSULE PO SCH (13:34)
[2018-12-31 15:00] VITALS: BP 156/88
[2018-12-31 19:31] VITALS: BP 147/101
[2018-12-31 23:19] VITALS: BP 167/113
[2019-01-01 03:31] VITALS: BP 161/108
[2019-01-01 07:25] VITALS: BP 141/84
[2019-01-01] MEDS: hydroCHLOROthiazide 12.5 MG CAPSULE PO SCH (09:28)
[2019-01-01] MEDS: POTASSIUM CHLORIDE 20 MEQ TABLET.ER. PO SCH (09:28)
[2019-01-01] MEDS: FUROSEMIDE 40 MG TABLET. PO SCH (09:28)
[2019-01-01] MEDS: amLODIPine BESYLATE 10 MG TABLET PO SCH (09:29)
[2019-01-01] MEDS: LISINOPRIL 10 MG TABLET PO SCH (09:29)
--- NOTE | 2019-01-01 10:26 | PDOC ---
PROGRESS NOTES History of Present Illness History of Present Illness ASSESSMENT AND PLAN: Hypertensive urgency acute, remains uncontrolled, improved today on d/c 01/01 stroke ,Focal hypoattenuation is identified in the right external capsule which may represent remote lacunar infarct measuring 7 mm. If there is persistent clinical concern, further evaluation with MRI is recommended. visual changes. hx noncompliance admitted. iv p.r.n. hydralazine. 10mg q 4 hrs prn bp support lisinopril 10 bid inc Lasix 40 a day, potassium chloride 20meq a day. Consult Neurology, PT/OT, home meds, DVT prophylaxis. hctz 12.5 mg po daily lisinopril 10mg po bid 39 min pt exam, chart review d/c planning , > 50% of time spent with exam, chart review, pt care coordination Vitals Vitals Vital Signs Date Time Temp Pulse Resp B/P (MAP) Pulse Ox O2 Delivery O2 Flow Rate FiO2 01/01/19 09:29 103 141/84 01/01/19 08:00 Room Air 01/01/19 07:25 98.5 18 97 98.5 Physical Exam Physical Exam GENERAL: No apparent distress. Alert and oriented. HEENT: Head is normocephalic, atraumatic, pupils were equally round and reactive to light and accommodation. NECK: Supple, no JVD, no thyromegaly was noted. LUNGS: Clear to auscultation in all lung alonso without rhonchi or wheezing. HEART: RRR, S1, S2 present. Peripheral pulses intact, no obvious murmurs were noted. ABDOMEN: Soft, nontender. Positive bowel sounds no organomegaly, normal bowel sounds. EXTREMITIES: Without any cyanosis, clubbing, or edema. Pedal pulses intact, Homans sign is negative. NEUROLOGIC: Normal speech, normal tone. A & O x3, moves all extremities, no obvious focal deficits. PSYCHIATRIC: Normal affect, normal mood. Stable. SKIN: No ulcerations or rashes, good skin turgor, no jaundice. VASCULAR: Good capillary refill, neurovascular bundle appears to be intact. General: Alert, Oriented X3, Cooperative, No acute distress Heart: Regular rate, Normal S1, Normal S2 Lungs: Clear Extremities: No cyanosis Assessment and Plan Assessmemt and Plan Problems Medical Problems: (1) Hypertensive urgency Status: Acute Comment Review of Relevant I have reviewed the following items noris (where applicable) has been applied. Labs Laboratory Tests Test 12/30/18 12:39 White Blood Count 3.4 x10^3/uL (4.0-11.0) Red Blood Count 3.90 x10^6/uL (3.50-5.40) Hemoglobin 12.7 g/dL (12.0-15.5) Hematocrit 36.8 % (36.0-47.0) Mean Corpuscular Volume 94 fL (79-100) Mean Corpuscular Hemoglobin 32 pg (25-35) Mean Corpuscular Hemoglobin Concent 34 g/dL (31-37) Red Cell Distribution Width 12.0 % (11.5-14.5) Platelet Count 205 x10^3/uL (140-400) Neutrophils (%) (Auto) 45 % (31-73) Lymphocytes (%) (Auto) 44 % (24-48) Monocytes (%) (Auto) 10 % (0-9) Eosinophils (%) (Auto) 1 % (0-3) Basophils (%) (Auto) 0 % (0-3) Neutrophils # (Auto) 1.5 x10^3/uL (1.8-7.7) Lymphocytes # (Auto) 1.5 x10^3/uL (1.0-4.8) Monocytes # (Auto) 0.3 x10^3/uL (0.0-1.1) Eosinophils # (Auto) 0.0 x10^3/uL (0.0-0.7) Basophils # (Auto) 0.0 x10^3/uL (0.0-0.2) Sodium Level 145 mmol/L (136-145) Potassium Level 4.1 mmol/L (3.5-5.1) Chloride Level 106 mmol/L (98-107) Carbon Dioxide Level 28 mmol/L (21-32) Anion Gap 11 (6-14) Blood Urea Nitrogen 15 mg/dL (7-20) Creatinine 1.1 mg/dL (0.6-1.0) Estimated GFR (Cockcroft-Gault) 51.6 BUN/Creatinine Ratio 14 (6-20) Glucose Level 89 mg/dL (70-99) Calcium Level 9.5 mg/dL (8.5-10.1) Total Bilirubin 0.6 mg/dL (0.2-1.0) Aspartate Amino Transf (AST/SGOT) 15 U/L (15-37) Alanine Aminotransferase (ALT/SGPT) 11 U/L (14-59) Alkaline Phosphatase 86 U/L (46-116) Total Protein 8.6 g/dL (6.4-8.2) Albumin 4.1 g/dL (3.4-5.0) Albumin/Globulin Ratio 0.9 (1.0-1.7) Medications Current Medications Hydralazine HCl (Apresoline Inj) 10 mg 1X ONCE IVP Last administered on 12/30/18at 12:49; Start 12/30/18 at 12:15; Stop 12/30/18 at 12:23; Status DC Hydralazine HCl (Apresoline Inj) 10 mg 1X ONCE IVP Last administered on 12/30/18at 14:23; Start 12/30/18 at 13:30; Stop 12/30/18 at 13:31; Status DC Iohexol (Omnipaque 350 Mg/ml) 60 ml 1X ONCE IV Last administered on 12/30/18at 14:12; Start 12/30/18 at 14:00; Stop 12/30/18 at 14:01; Status DC Info (CONTRAST GIVEN -- Rx MONITORING) 1 each PRN DAILY PRN MC SEE COMMENTS; Start 12/30/18 at 14:00; Stop 01/01/19 at 13:59 Ondansetron HCl (Zofran) 4 mg PRN Q8HRS PRN IV NAUSEA/VOMITING Last administered on 12/30/18at 17:23; Start 12/30/18 at 16:00; Stop 12/31/18 at 15:59; Status DC Fentanyl Citrate (Fentanyl 2ml Vial) 50 mcg PRN Q1HR PRN IV PAIN; Start 12/30/18 at 16:00; Stop 12/31/18 at 15:59; Status DC Furosemide (Lasix) 40 mg 1X ONCE IVP Last administered on 12/30/18at 17:21; Start 12/30/18 at 16:00; Stop 12/30/18 at 16:01; Status DC Lisinopril (Prinivil) 10 mg DAILY PO Last administered on 12/31/18at 08:49; Start 12/31/18 at 09:00; Stop 12/31/18 at 12:20; Status DC Furosemide (Lasix) 40 mg DAILY PO Last administered on 01/01/19 09:28; Start 12/31/18 at 09:00 Potassium Chloride (Klor-Con) 20 meq DAILYWBKFT PO Last administered on 01/01/19 09:28; Start 12/31/18 at 08:00 Acetaminophen/ Hydrocodone Bitart (Lortab 5/325) 1 tab PRN Q4HRS PRN PO PAIN Last administered on 12/31/18 21:20; Start 12/30/18 at 18:30 Amlodipine Besylate (Norvasc) 10 mg DAILY PO Last administered on 01/01/19 09:29; Start 12/31/18 at 09:00 Lisinopril (Prinivil) 10 mg [id number] PO Last administered on 01/01/19 09:29; Start 12/31/18 at 12:30 Hydrochlorothiazide (Microzide) 12.5 mg DAILY PO Last administered on 01/01/19 09:28; Start 12/31/18 at 12:30 Active Scripts Active Reported Lisinopril 40 Mg Tablet 1 Tab PO DAILY Vitals/I & O Vital Sign - Last 24 Hours 12/31/18 12/31/18 12/31/18 12/31/18 11:00 13:33 15:00 17:40 Temp 98.2 98.0 98.2 98.0 Pulse 64 64 72 72 Resp 18 18 B/P (MAP) 158/88 (111) 158/88 156/88 (110) 156/88 Pulse Ox 98 99 O2 Delivery Room Air Room Air 12/31/18 12/31/18 12/31/18 01/01/19 19:31 20:00 23:19 03:31 Temp 98.4 98.3 98.6 98.4 98.3 98.6 Pulse 63 60 60 Resp 18 18 18 B/P (MAP) 147/101 (116) 167/113 (131) 161/108 (125) Pulse Ox 98 98 97 O2 Delivery Room Air Room Air Room Air Room Air 01/01/19 01/01/19 01/01/19 01/01/19 07:25 08:00 09:29 09:29 Temp 98.5 98.5 Pulse 103 103 103 Resp 18 B/P (MAP) 141/84 (103) 141/84 141/84 Pulse Ox 97 O2 Delivery Room Air Room Air Intake and Output 12/31/18 12/31/18 01/01/19 14:59 22:59 06:59 Intake Total 520 ml 900 ml Balance 520 ml 900 ml MILLIE FISHER MD Jan 01, 2019 10:26
[2019-01-01 10:54] VITALS: BP 144/97
--- NOTE | 2019-01-01 12:19 | PDOC3 ---
Discharge Summary Date of Admission: Dec 29, 2018 Date of Discharge: Jan 01, 2019 Follow-Up: 3-5 days Admitting Diagnosis comment: discharge dx Hypertensive urgency acute, remains uncontrolled, improved today on d/c 01/01 stroke ,Focal hypoattenuation is identified in the right external capsule which may represent remote lacunar infarct measuring 7 mm. If there is persistent clinical concern, further evaluation with MRI is recommended. visual changes. hx noncompliance admitted. iv p.r.n. hydralazine. 10mg q 4 hrs prn bp support lisinopril 10 bid inc Lasix 40 a day, potassium chloride 20meq a day. Consult Neurology, PT/OT, home meds, DVT prophylaxis. hctz 12.5 mg po daily lisinopril 10mg po bid 39 min pt exam, chart review d/c planning , > 50% of time spent with exam, chart review, pt care coordination Vitals Vitals Vital Signs Date Time Temp Pulse Resp B/P (MAP) Pulse Ox O2 Delivery O2 Flow Rate FiO2 01/01/19 09:29 103 141/84 01/01/19 08:00 Room Air 01/01/19 07:25 98.5 18 97 98.5 Physical Exam Physical Exam GENERAL: No apparent distress. Alert and oriented. HEENT: Head is normocephalic, atraumatic, pupils were equally round and reactive to light and accommodation. NECK: Supple, no JVD, no thyromegaly was noted. LUNGS: Clear to auscultation in all lung alonso without rhonchi or wheezing. HEART: RRR, S1, S2 present. Peripheral pulses intact, no obvious murmurs were noted. ABDOMEN: Soft, nontender. Positive bowel sounds no organomegaly, normal bowel sounds. EXTREMITIES: Without any cyanosis, clubbing, or edema. Pedal pulses intact, Homans sign is negative. NEUROLOGIC: Normal speech, normal tone. A & O x3, moves all extremities, no obvious focal deficits. PSYCHIATRIC: Normal affect, normal mood. Stable. SKIN: No ulcerations or rashes, good skin turgor, no jaundice. VASCULAR: Good capillary refill, neurovascular bundle appears to be intact. General: Alert, Oriented X3, Cooperative, No acute distress Heart: Regular rate, Normal S1, Normal S2 Lungs: Clear Extremities: No cyanosis FINAL DIAGNOSIS Problems Medical Problems: (1) Hypertensive urgency Status: Acute Brief Hospital Course Ms. Benson is a 53 old [sex] who presented with [ severe hypertension, cva] CONDITION AT DISCHARGE: Improved Discharge Medications Current Medications Hydralazine HCl (Apresoline Inj) 10 mg 1X ONCE IVP Last administered on 12/30/18at 12:49; Start 12/30/18 at 12:15; Stop 12/30/18 at 12:23; Status DC Hydralazine HCl (Apresoline Inj) 10 mg 1X ONCE IVP Last administered on 12/30/18at 14:23; Start 12/30/18 at 13:30; Stop 12/30/18 at 13:31; Status DC Iohexol (Omnipaque 350 Mg/ml) 60 ml 1X ONCE IV Last administered on 12/30/18at 14:12; Start 12/30/18 at 14:00; Stop 12/30/18 at 14:01; Status DC Info (CONTRAST GIVEN -- Rx MONITORING) 1 each PRN DAILY PRN MC SEE COMMENTS; Start 12/30/18 at 14:00; Stop 01/01/19 at 13:59 Ondansetron HCl (Zofran) 4 mg PRN Q8HRS PRN IV NAUSEA/VOMITING Last administered on 12/30/18at 17:23; Start 12/30/18 at 16:00; Stop 12/31/18 at 15:59; Status DC Fentanyl Citrate (Fentanyl 2ml Vial) 50 mcg PRN Q1HR PRN IV PAIN; Start 12/30/18 at 16:00; Stop 12/31/18 at 15:59; Status DC Furosemide (Lasix) 40 mg 1X ONCE IVP Last administered on 12/30/18at 17:21; Start 12/30/18 at 16:00; Stop 12/30/18 at 16:01; Status DC Lisinopril (Prinivil) 10 mg DAILY PO Last administered on 12/31/18at 08:49; Start 12/31/18 at 09:00; Stop 12/31/18 at 12:20; Status DC Furosemide (Lasix) 40 mg DAILY PO Last administered on 01/01/19at 09:28; Start 12/31/18 at 09:00 Potassium Chloride (Klor-Con) 20 meq DAILYWBKFT PO Last administered on 01/01/19 09:28; Start 12/31/18 at 08:00 Acetaminophen/ Hydrocodone Bitart (Lortab 5/325) 1 tab PRN Q4HRS PRN PO PAIN Last administered on 12/31/18 21:20; Start 12/30/18 at 18:30 Amlodipine Besylate (Norvasc) 10 mg DAILY PO Last administered on 01/01/19 09:29; Start 12/31/18 at 09:00 Lisinopril (Prinivil) 10 mg [id number] PO Last administered on 01/01/19 09:29; Start 12/31/18 at 12:30 Hydrochlorothiazide (Microzide) 12.5 mg DAILY PO Last administered on 12/20 09:28; Start 12/31/18 at 12:30 Active Scripts Active Reported Lisinopril 40 Mg Tablet 1 Tab PO DAILY Vital Signs Vital Signs Date Time Temp Pulse Resp B/P (MAP) Pulse Ox O2 Delivery O2 Flow Rate FiO2 01/01/19 10:54 98.4 112 18 144/97 (113) 98 Room Air 98.4 Labs Laboratory Tests Test 12/30/18 12:39 White Blood Count 3.4 x10^3/uL (4.0-11.0) Red Blood Count 3.90 x10^6/uL (3.50-5.40) Hemoglobin 12.7 g/dL (12.0-15.5) Hematocrit 36.8 % (36.0-47.0) Mean Corpuscular Volume 94 fL (79-100) Mean Corpuscular Hemoglobin 32 pg (25-35) Mean Corpuscular Hemoglobin Concent 34 g/dL (31-37) Red Cell Distribution Width 12.0 % (11.5-14.5) Platelet Count 205 x10^3/uL (140-400) Neutrophils (%) (Auto) 45 % (31-73) Lymphocytes (%) (Auto) 44 % (24-48) Monocytes (%) (Auto) 10 % (0-9) Eosinophils (%) (Auto) 1 % (0-3) Basophils (%) (Auto) 0 % (0-3) Neutrophils # (Auto) 1.5 x10^3/uL (1.8-7.7) Lymphocytes # (Auto) 1.5 x10^3/uL (1.0-4.8) Monocytes # (Auto) 0.3 x10^3/uL (0.0-1.1) Eosinophils # (Auto) 0.0 x10^3/uL (0.0-0.7) Basophils # (Auto) 0.0 x10^3/uL (0.0-0.2) Sodium Level 145 mmol/L (136-145) Potassium Level 4.1 mmol/L (3.5-5.1) Chloride Level 106 mmol/L (98-107) Carbon Dioxide Level 28 mmol/L (21-32) Anion Gap 11 (6-14) Blood Urea Nitrogen 15 mg/dL (7-20) Creatinine 1.1 mg/dL (0.6-1.0) Estimated GFR (Cockcroft-Gault) 51.6 BUN/Creatinine Ratio 14 (6-20) Glucose Level 89 mg/dL (70-99) Calcium Level 9.5 mg/dL (8.5-10.1) Total Bilirubin 0.6 mg/dL (0.2-1.0) Aspartate Amino Transf (AST/SGOT) 15 U/L (15-37) Alanine Aminotransferase (ALT/SGPT) 11 U/L (14-59) Alkaline Phosphatase 86 U/L (46-116) Total Protein 8.6 g/dL (6.4-8.2) Albumin 4.1 g/dL (3.4-5.0) Albumin/Globulin Ratio 0.9 (1.0-1.7) Allergies Allergies Coded Allergies Type Severity Reaction Last Updated Verified No Known Drug Allergies 12/30/18 No Disposition/Orders: D/C to Home Patient Instructions d/c planning 39 min MILLIE FISHER MD Jan 01, 2019 12:19
[2019-01-01] MEDS ORDERED: POTA20TA4 PO (12:21)
[2019-01-01] MEDS ORDERED: FURO40TA4 PO (12:21)
[2019-01-01] MEDS ORDERED: HYDR12.575 PO (12:21)
[2019-01-01] MEDS ORDERED: AMLO10TA8 PO (12:21)
--- NOTE | 2019-01-01 12:22 | DISCH ---
DISCHARGE INSTRUCTIONS Condition on Discharge Condition on Discharge: Stable Activity After Discharge Activity Instructions for Disc: Activity as tolerated Lifting Instructions after Dis: No heavy lifting, No pulling or pushing Exercise Instruction after Dis: Walk 10 min, 3 x per day Driving Instructions after Dis: Do not drive today Diet after Discharge Diet after Discharge: Cardiac Contacting the DR. after DC Call your doctor for: If your condition worsens MILLIE FISHER MD Jan 01, 2019 12:22
--- NOTE | 2019-01-01 13:31 | NUR ---
Discharge Note: SUSHIL ACOSTA [address] Discharge instructions and discharge home medications reviewed with Patient and a copy given. All questions have been answered and understanding verbalized. The following instructions and handouts were given: patient visit report, medication information, and education. Encouraged patient to fill prescriptions upon discharge. Called [facility] pharmacy, all presciptions except Klor-con are on the $4 fill list, patient informed. Discontinued lines and drains: peripheral IV, tip intact. Patient discharged to home with self care via private vehichle. Patient left unit walking, awake, in stable condition with all personal belongings.
== END 2019-01-01 15:31 | disposition home or self-care (01) | DRG 305 ==
LOC: ER 12:08 → 6 SOUTH 15:49
PROVIDERS: ADMIT Internal Medicine; ATTEND Internal Medicine
DX: I16.0 Hypertensive urgency (principal); I67.4 Hypertensive encephalopathy; I10 Essential (primary) hypertension; Z59.9 Problem related to housing and economic circumstances, unspecified; Z79.899 Other long term (current) drug therapy; Z82.49 Family history of ischemic heart disease and other diseases of the circulatory system; Z91.19 Patient's noncompliance with other medical treatment and regimen; Z86.79 Personal history of other diseases of the circulatory system
CPT/HCPCS: 36415; 70450; 70496; 70498; 80053; 85025; 93005; 96374; 96376; J0360; J1940; J2405; Q9967; 99285-25; G0378